=== PATIENT | female | born 1995 | race American Indian/Alaskan Native ===

== ENCOUNTER 2019-11-12 15:23 | Emergency (ER) | payer OTHER ==
[2019-11-12] MEDS ORDERED: HYDROcodone/ACETAMINOPHEN 5-325 MG TAB PO PRN (16:55)
--- NOTE | 2019-11-12 16:59 | Emergency Department Report ---
HPI - General Chief Complaint: Extremity Injury, Lower Time Seen by Provider: 11/12/19 16:31 - HPI HPI: Room 25 The patient is a 24-year-old female present with a chief complaint of right lower extremity pain. Patient states for the past 2 weeks she has had pain in her right lower extremity. Patient has a history of frequent DVTs and states 6 days ago she went to an ED in [place] and was diagnosed with a right lower extremity DVT. Patient was placed on Xarelto. Patient states her pain has been worsening despite the medication and is difficult for her to walk secondary to the pain. Patient also admits to some shortness of breath occasionally for the past 3 weeks. Patient denies chest pain, pleurisy, fever or cough. ED Past Medical Hx - Past Medical History Previous Medical History?: Yes Hx Deep Vein Thrombosis: Yes Hx Pulmonary Embolism: Yes Additional medical history: right leg DVT - Social History Smoking Status: Never Smoker Substance Use Type: None - Medications Home Medications: Home Medications Medication Instructions Recorded Confirmed Last Taken Type HYDROcodone/APAP 5-325 [Preble 1 - 2 each PO Q6HR PRN #14 tablet 11/12/19 Unknown Rx 5/325] ED Review of Systems ROS: Stated complaint: RIGHT LEG PAIN Other details as noted in HPI Constitutional: denies: fever Respiratory: shortness of breath Cardiovascular: denies: chest pain Endocrine: no symptoms reported Musculoskeletal: myalgia Physical Exam - Physical Exam Vital Signs: Vital Signs 11/12/19 15:28 Temperature 99.4 F Pulse Rate 109 H Respiratory 20 Rate Blood Pressure 119/77 O2 Sat by Pulse 100 Oximetry Physical Exam: GENERAL: The patient is well-developed well-nourished female lying on stretcher not appearing to be in acute distress. [] HEENT: Normocephalic. Atraumatic. Extraocular motions are intact. Patient has moist mucous membranes. NECK: Supple. Trachea midline CHEST/LUNGS: There is no respiratory distress noted. HEART/CARDIOVASCULAR: Regular. There is no tachycardia. 2+ right DP SKIN: There is no rash. There is no diaphoresis. NEURO: The patient is awake, alert, and oriented. The patient is cooperative. The patient has normal speech MUSCULOSKELETAL: There is no evidence of acute injury. ED Course Vital Signs 11/12/19 15:28 Temperature 99.4 F Pulse Rate 109 H Respiratory 20 Rate Blood Pressure 119/77 O2 Sat by Pulse 100 Oximetry ED Medical Decision Making - Lab Data Result diagrams: 11/12/19 17:04 11/12/19 17:04 - Radiology Data Radiology results: report reviewed (Right lower extremity Doppler, CT chest), image reviewed (Right lower extremity Doppler, CT chest) Findings [address] [address] Vascular Lab Report Signed Patient: KAL JUSTICE MR#: [id number] : 1995 Acct:[id number] Age/Sex: 24 / F ADM Date: 11/12/19 Loc: ED Attending Dr: Ordering Physician: VIGNESH ROSAS MD Date of Service: 11/12/19 Procedure(s): VL venous duplex LE RT Accession Number(s): [id number] cc: VIGNESH ROSAS MD DUPLEX DOPPLER LOWER EXTREMITY VEINS, RIGHT INDICATION / CLINICAL INFORMATION: Right leg swelling. TECHNIQUE: Duplex doppler imaging was performed through the veins of the right lower extremity using venous compression and other maneuvers. COMPARISON: None available. FINDINGS: RIGHT COMMON FEMORAL VEIN: Negative. RIGHT FEMORAL VEIN: Negative. RIGHT POPLITEAL VEIN: Acute thrombus. RIGHT CALF VEINS: Negative. ADDITIONAL FINDINGS: None. IMPRESSION: 1. Acute DVT in the right popliteal vein. Signer Name: Gab Gomez MD Signed: 11/12/2019 5:15 PM Workstation Name: [id number] Transcribed By: TREMAINE Dictated By: Gab Gomez MD Electronically Authenticated By: Gab Gomez MD Signed Date/Time: 11/12/191714 DD/ 13 TD/TT: Findings [address] [address] Cat Scan Report Signed Patient: KAL JUSTICE MR#: [id number] : 1995 Acct:[id number] Age/Sex: 24 / F ADM Date: 11/12/19 Loc: ED Attending Dr: Ordering Physician: RASHIDA TALBOT MD Date of Service: 11/12/19 Procedure(s): CT angio chest Accession Number(s): [id number] cc: RASHIDA TALBOT MD CTA CHEST WITH IV CONTRAST INDICATION: Shortness of breath. TECHNIQUE: Axial CT images were obtained through the chest after injection of 100 mL Omnipaque 350 IV contrast. 3 plane MIP reconstructions were produced. All CT scans at this location are performed using CT dose reduction for ALARA by means of automated exposure control. COMPARISON: None available. FINDINGS: Pulmonary Arteries: No pulmonary emboli. Lungs: No significant abnormality. Trachea and Bronchi: No significant abnormality. Heart and Pericardium: No significant abnormality. Vasculature: No significant abnormality. Lymphatics: No lymphadenopathy. Additional Findings: None. Upper Abdomen: No acute findings. Skeletal Structure s: No significant osseous abnormality. IMPRESSION: 1. No CT evidence for pulmonary embolism. 2. No acute findings. Signer Name: Gab Gomez MD Signed: 11/12/2019 7:24 PM Workstation Name: [id number] Transcribed By: TREMAINE Dictated By: Gab Gomez MD Electronically Authenticated By: Gab Gomez MD Signed Date/Time: 11/12/191923 DD/ 22 TD/TT: - Differential Diagnosis DVT, PE Critical care attestation.: If time is entered above; I have spent that time in minutes in the direct care of this critically ill patient, excluding procedure time. ED Disposition Clinical Impression: Left leg DVT Disposition: DC-01 TO HOME OR SELFCARE Is pt being admited?: No Does the pt Need Aspirin: No Condition: Stable Instructions: Deep Venous Thrombosis (ED) Additional Instructions: Return to the emergency department should you develop worsening symptoms, inability to tolerate food or liquids, high fever or any other concerns Prescriptions: HYDROcodone/APAP 5-325 [Preble 5/325] 1 - 2 each PO Q6HR PRN #14 tablet PRN Reason: Pain Referrals: MARIZA SOLIS MD [Staff Physician] - 3-5 Days [facility] [Provider Group] - 3-5 Days JOSE MANUEL KRAFT MD [Staff Physician] - 3-5 Days (Dr. Kraft is a vascular surgeon. Please follow-up with him for further evaluate) Time of Disposition: 19:40
--- NOTE | 2019-11-12 17:19 | Vascular Lab Report ---
DUPLEX DOPPLER LOWER EXTREMITY VEINS, RIGHT INDICATION / CLINICAL INFORMATION: Right leg swelling. TECHNIQUE: Duplex doppler imaging was performed through the veins of the right lower extremity using venous comp ression and other maneuvers. COMPARISON: None available. FINDINGS: RIGHT COMMON FEMORAL VEIN: Negative. RIGHT FEMORAL VEIN: Negative. RIGHT POPLITEAL VEIN: Acute thrombus. RIGHT CALF VEINS: Negative. ADDITIONAL FINDINGS: None. IMPRESSION: 1. Acute DVT in the right popliteal vein. Signer Name: Gab Gomez MD Signed: 11/12/2019 5:15 PM Workstation Name: [id number]
[2019-11-12 17:39] LABS: Basophils # (Auto) 0.1 K/mm3 (0.0-0.1); Basophils % (Auto) 0.5 % (0.0-1.8); Eosinophils # (Auto) 0.4 K/mm3 (0.0-0.4); Eosinophils % (Auto) 3.7 % (0.0-4.3); Hematocrit 39.2 % (30.3-42.9); Hemoglobin 12.8 gm/dl (10.1-14.3); Lymphocytes # (Auto) 2.4 K/mm3 (1.2-5.4); Lymphocytes % (Auto) 20.9 % (13.4-35.0); Mean Corpuscular HGB Conc 33 % (30-34); Mean Corpuscular Volume 85 fl (79-97); Monocytes # (Auto) 0.7 K/mm3 (0.0-0.8); Monocytes % (Auto) 6.3 % (0.0-7.3); Platelet Count 239 K/mm3 (140-440); Red Blood Count 4.59 M/mm3 (3.65-5.03); Red Cell Distribution Width 13.7 % (13.2-15.2)
[2019-11-12 17:48] LABS: BUN/Creatinine Ratio 11; Blood Urea Nitrogen 9 mg/dL (7-17); Calcium 9.5 mg/dL (8.4-10.2); Hemolysis Index 10
[2019-11-12 18:00] LABS: INR 1.45 (0.87-1.13)
[2019-11-12 18:01] LABS: Partial Thromboplastin Time 36.5 Sec. (24.2-36.6)
--- NOTE | 2019-11-12 19:28 | Cat Scan Report ---
CTA CHEST WITH IV CONTRAST INDICATION: Shortness of breath. TECHNIQUE: Axial CT images were obtained through the chest after injection of 100 mL Omnipaque 350 IV contrast. 3 plane MIP reconstructions were produced. All CT scans at this location are performed using CT dose reduction for ALARA by means of automated exposure control. COMPARISON: None available. FINDINGS: Pulmonary Arteries: No pulmonary emboli. Lungs: No significant abnormality. Trachea and Bronchi: No significant abnormality. Heart and Pericardium: No significant abnormality. Vasculature: No significant abnormality. Lymphatics: No lymphadenopathy. Additional Findings: None. Upper Abdomen: No acute findings. Skeletal Structures: No significant osseous abnormality. IMPRESSION: 1. No CT evidence for pulmonary embolism. 2. No acute findings. Signer Name: Gab Gomez MD Signed: 11/12/2019 7:24 PM Workstation Name: [id number]
[2019-11-12 20:01] VITALS: BP 100/52
== END 2019-11-12 20:01 | disposition home or self-care (01) ==
LOC: ED 15:23
DX: I82.402 Acute embolism and thrombosis of unspecified deep veins of left lower extremity (principal); Z86.711 Personal history of pulmonary embolism; Z79.899 Other long term (current) drug therapy
CPT/HCPCS: 36415; 71275; 80048; 84703; 85025; 85610; 85730; 93971; 99284; Q9967